=== PATIENT | female | born 1955 | race Caucasian/White ===

== ENCOUNTER 2016-07-22 04:19 | Emergency (ER) | payer BC ==
--- NOTE | 2016-07-22 06:24 | ED ORDER SUMMARY ---
..... Patient: MUKUL SMITH OrderSheet [facility] VisitID: [id number] [place] [address] 60y, F Registration Date/Time: 07/22/2016 ORDER SHEET Weight: 127.0 kg Allergies: Demerol GENERAL ORDERS: CBC w Diff Urgent (04:24 07/22/2016 Stefan Flowers) (Ack 4:27 SRedmond) (4:30 TBowen R.N.) CMP Urgent (04:07/22/2016 Stefan Flowers) (Ack 4:27 SRedmond) (4:30 TBowen R.N.) UA-Culture if indicated Urgent (04:07/22/2016 Stefan Flowers) (Ack 4:27 SRedmond) (4:30 TBowen R.N.) Lipase Urgent (04:07/22/2016 Stefan Flowers) (Ack 4:27 SRedmond) (4:30 TBowen R.N.) Pulse oximeter (04:24 07/22/2016 Stefan Flowers) (Ack 4:27 SRedmond) (4:27 SRedmond) CT Abd/Pel wo Cont Urgent (04:34 07/22/2016 Stefan Flowers) (Ack 4:38 SRedmond) (6:25 SRedmond) MEDICATION ORDERS: IV FLUIDS: IV NS : initial bolus 1000 mL (1000 mL/hr), then none - for X1 (NOW) (04:07/22/2016 Stefan Flowers) (4:35 TBowen R.N.) Zofran IV 4 mg (NOW) (04:24 07/22/2016 Stefan Flowers) (4:30 TBowen R.N.) Toradol IV 30 mg (NOW) (04:07/22/2016 Stefan Flowers) (4:50 TBowen R.N.) Dilaudid IV 1 mg (once now. may repeat in 15 minutes for pain > 5/10) (04:35 07/22/2016 Stefan Flowers) (4:50 TBowen R.N.) Dilaudid IV 1 mg (HIGH ALERT MEDICATION, NOW) (06:21 07/22/2016 Stefan Flowers) (6:41 Jamil Purcell) ORDER SHEET NOTES: [Electronically signed by Sharon Gonzáles R.N. (07:04 07/22/2016)] [Electronically signed by Alex Harrell Dr. (03:18 07/27/2016)] [Electronically locked/signed by Sharon Gonzáles R.N. (07:04 07/22/2016)]
--- NOTE | 2016-07-22 06:24 | ED NURSING NOTES ---
Clinical Report - Nurses [facility] [address] [place] [address] 07/22/2016 4:21 Patient: MUKUL SMITH TRIAGE Triage time 04:26. Acuity: LEVEL 3. Chief Complaint: PAINFUL URINATION and URGENCY. --04:28 TonyaB, R.N. 04:25 07/22/16. BP: 175/97. HR: 87. RR: 18. O2 saturation: 97%. Temp: 98.3 F. Pain level now: 10/24. --04:28 TonyaB, R.N. Weight: 127 kg. Height/Length: 66 inches. BMI: 45.2. --04:27 TonyaB, R.N. Medications Benadryl Allergy Oral. Calcium + D Oral. Ibuprofen Oral. Lovastatin Oral. Multi Complete Oral. Stelara Subcutaneous. --04:26 TonyaB, R.N. Allergies Demerol. --04:26 TonyaB, R.N. History Arrived by private vehicle. Historian: patient. Accompanied by family. This started just prior to arrival. Treatment PROJECT BUYER: (zofran). PAST MEDICAL HX: Immunizations: up-to-date. SOCIAL HX: Never smoker. No alcohol use or drug use. No infectious disease exposure. SELF HARM ASSESSMENT: A self harm assessment was performed. The patient answered "no" to the question "Have you recently felt down, depressed, or hopeless?", "Have you noticed less interest or pleasure in doing things?", "Do you have thoughts of harming or killing yourself?", "Are you here because you tried to hurt yourself?", "Have you ever tried to hurt yourself before today?", "Have you recently had thoughts about harming or killing others?" and "Do you have any dangerous items in your possession?". FALL RISK ASSESSMENT: Fall risk assessment completed. No fall risk identified. NUTRITIONAL RISK ASSESSMENT: The nutritional risk assessment revealed no deficiencies. FUNCTIONAL ASSESSMENT: Functional assessment: no impairments noted. LEARNING NEEDS ASSESSMENT: The learning needs assessment revealed no barriers. SKIN INTEGRITY ASSESSMENT: Skin integrity risk assessment completed. No skin integrity risk identified. --04:28 Binh Raya PROBLEMS: Urinary Calculi. Ureterolithiasis. Obesity. Arthritis. Psoriasis. --04:26 Sarah Raya. ADDITIONAL SURGERIES: Adenoidectomy. Knee Surgery. Thumb joint replacement . Tonsillectomy. Tubal Ligation. --04:26 Binh Raya Interventions ID band on patient. To treatment room. --04:28 Binh Raya PHYSICAL ASSESSMENT ( pt having nausea and vomiting since 023). GENERAL / NEURO / PSYCH: Alert. Oriented X 4. Appears in pain. HEENT: Mucous membranes are pink. RESPIRATORY: Respirations not labored. Breath sounds within normal limits. CVS: Normal heart rate and rhythm. Capillary refill less than 2 seconds. GI / : Pain with urination. She has had frequency of urination. Urgency of urination. No vaginal bleeding. No vaginal discharge. No genital lesions noted. SKIN: Skin is warm and dry. --04:29 Binh Raya NURSING PROGRESS NOTES 04:29 07/22/2016 Site #1 started via IV in the right antecubital space with an 20g angiocath, with aseptic technique and good blood return; one attempt. Blood drawn: rainbow set. Labeled in the presence of the patient and sent to the lab. --04:29 Binh Raya ( zofran 4mg IV given per verbal order by ). --04:29 Binh Raya Patient gowned. Patient identifiers checked. Call light placed in reach. Side rails up. Bed placed in lowest position. Brakes of bed on. --04:30 Binh Raya 04:30 07/22/2016 Zofran (Ondansetron HCl) IVP 4 mg given over 2 minute(s) via site #1. Allergies verified and confirmed 5 rights. IV patency established. IV site checked: no pain, redness, or swelling. IV flushed thoroughly pre- and post-medication administration. IVP given by RN. --04:30 Binh Raya 04:35 07/22/2016 Started bag #1 1000 mL IV Fluids IV NS (Saline); at 1000 mL/hr over 1 hour(s) via site #1 via dial-a-flow. Allergies verified and confirmed 5 rights. IV patency established. IV site checked: no pain, redness, or swelling. IV flushed thoroughly pre- and post-medication administration. --04:35 Binh Raya 04:50 07/22/2016 Toradol IVP 30 mg given over 2 minute(s) via site #1. Allergies verified and confirmed 5 rights. IV patency established. IV site checked: no pain, redness, or swelling. IV flushed thoroughly pre- and post-medication administration. IVP given by RN. --04:50 Binh Raya 04:50 07/22/2016 Dilaudid (HYDROmorphone HCl PF) IVP 1 mg given over 2 minute(s) via site #1. Allergies verified, confirmed 5 rights and sedative warning given to the patient. IV patency established. IV site checked: no pain, redness, or swelling. IV flushed thoroughly pre- and post-medication administration. IVP given by RN. --04:50 Binh Raya 06:30 07/22/2016 Dilaudid (HYDROmorphone HCl PF) IVP 1 mg given over 2 minute(s) via site #1. Allergies verified, confirmed 5 rights and sedative warning given to the patient. IV patency established. IV site checked: no pain, redness, or swelling. IV flushed thoroughly pre- and post-medication administration. IVP given by RN. --06:41 Yahir Whitman R.N. 07:04 07/22/2016 IV Fluids IV NS Discontinued: bag #1 completed upon discharge. Total amount infused: 1000 mL. IV patency established. IV site checked: no pain, redness, or swelling. IV flushed thoroughly. --07:04 Binh Raya DISPOSITION / DISCHARGE 07:00 07/22/2016 Site #1 removed upon discharge. Catheter intact. Bandaid applied. --07:00 Binh Raya Condition at departure: improved. No learning barriers present. Discharge instructions provided and reviewed with the patient. Reviewed medication(s) side effects, precautions, dosing and course information. Prescription(s) given to the patient. Reviewed referral to a urologist. Work note given. Follow up contact number. Patient verbalized understanding. Written instructions provided in [place]. No warning instructions, treatment instructions, diet instructions, activity restrictions or stop smoking instructions. The patient was discharged by the physician. She was discharged home and accompanied by used car make ready worker. She left the Emergency Department ambulatory and via private vehicle. Artificial Flower Maker driving. FALL RISK ASSESSMENT: Fall risk assessment completed. No fall risk identified. --07:02 Binh Raya 07:00 07/22/16. BP: 134/74. HR: 80. RR: 18. O2 saturation: 96%. Temp: deferred. Pain level now: 05/27. --07:02 Binh Raya Departure time: :. --07:04 Binh Raya 06:34 07/22/16. BP: 129/64. HR: 79. RR: 18. O2 saturation: 96%. Temp: deferred. Pain level now: 05/27. --07:04 Binh Raya Locked/Released at 07/22/2016 7:04 by Binh Raya
--- NOTE | 2016-07-22 06:24 | ED CLINICAL REPORT ---
Clinical Report - Physicians/Mid Levels [facility] [address] [place] [address] 07/22/2016 4:21 [id number] Time Seen: 9. Arrived- By private vehicle. Historian- patient. HISTORY OF PRESENT ILLNESS Chief Complaint: FLANK PAIN. This started today and is still present. It was abrupt in onset and has been intermittent but is not gone now. It is described as sharp and it is described as located in the right flank and radiating to the abdomen (RLQ). At its maximum, severity described as moderate. When seen in the E.D., severity described as moderate. No loss of appetite or diarrhea. Similar symptoms previously: Recent medical care: The patient was seen recently by a health care provider. REVIEW OF SYSTEMS No black stools, hematemesis, fever, chest pain or difficulty breathing. No skin rash. She has had difficulty with urination, and pain on urination. All systems otherwise negative, except as recorded above. PAST HISTORY See nurses notes. Medications: Benadryl Allergy Oral. Calcium + D Oral. Ibuprofen Oral. Lovastatin Oral. Multi Complete Oral. Stelara Subcutaneous. Allergies: Demerol. SOCIAL HISTORY Never smoker. No alcohol use or drug use. No recent travel. Is a local resident. FAMILY HISTORY Negative. ADDITIONAL NOTES The nursing notes have been reviewed. PHYSICAL EXAM Vital Signs: 07/22/2016 04:25 BP: 175/97. HR: 87. RR: 18. O2 saturation: 97%. Temp: 98.3 F. Pain level now: 7/10. Oxygen saturation normal. Appearance: Alert. Oriented X3. No acute distress. Eyes: Pupils equal, round and reactive to light. Eyes normal inspection. CVS: Normal heart rate and rhythm. Heart sounds normal. Pulses normal. Respiratory: No respiratory distress. Breath sounds normal. Chest nontender. Abdomen: Soft and nontender. Bowel sounds normal. No mass. No rebound tenderness or guarding. Back: Normal inspection. Mild CVA tenderness on the right. Skin: Skin warm and dry. Normal skin color. No rash. Normal skin turgor. Extremities: Extremities exhibit normal ROM. No lower extremity edema. LABS, X-RAYS, AND EKG Abdominal CT: PROCEDURE: CT ABDOMEN/PELVIS W/O CONTRAST INDICATION: RIGHT FLANK PAIN TECHNIQUE: Axial CT images were obtained through the abdomen and pelvis without IV contrast. Coronal and sagittal reformations were created. COMPARISON: 04/03/2016 FINDINGS: 7 mm calculus at the right ureteropelvic junction causing moderate right hydronephrosis. Punctate upper pole nonobstructing intrarenal calculus on the right, and two nonobstructing intrarenal calculi on the left, also punctate in size. 12 mm lesser sac heterogeneous calcification may be evidence of remote pancreatitis or calcified lymph node. Fat containing right periumbilical hernia with a neck measuring about 18 mm. Clear lung bases. Normal sized heart. No hiatal hernia. The unenhanced appearance of the liver, gallbladder, adrenal glands, kidneys, pancreas and spleen is normal. The abdominal aorta is normal in its course and caliber with trace atherosclerosis. No retroperitoneal adenopathy or masses. The stomach, upper bowel loops, and mesentery are normal. No free fluid or inflammation. The unenhanced appearance of the uterus, ovaries, urinary bladder, pelvic vessels, and pelvic bowel loops is normal. Normal appendix. No suspicious calcifications, free pelvic fluid or mass. Intact osseous structures. Degenerative facet disease in the lower lumbar spine. IMPRESSION: 1. 7 mm right ureteropelvic junction calculus causing moderate right hydronephrosis. 2. Punctate, nonobstructing bilateral intrarenal calculi. 3. Moderate size fat containing umbilical hernia, stable. Study type: abdomen and pelvis. The study was independently viewed by me and interpreted by the radiologist. The study was discussed with the radiologist (via phone and pacs). Laboratory Tests: UA-Culture if indicated: (JEANETTE: 07/22/2016 04:20) ( MsgRcvd 07/22/2016 05:08) Final results Test Result Flag Units (Reference) URINE COLOR YELLOW URINE APPEARANCE CLEAR URINE GLUCOSE NEGATIVE (NEGATIVE) URINE BILIRUBIN NEGATIVE (NEGATIVE) URINE KETONE NEGATIVE (NEGATIVE) URINE SPECIFIC GRAVITY 1.020 (1.010-1.030) URINE PH 6.0 (5.0-8.0) URINE PROTEIN NEGATIVE (NEGATIVE) URINE UROBILINOGEN 0.2 EU/dL (0.2-1.0) URINE NITRITE NEGATIVE (NEGATIVE) URINE BLOOD 3+ (NEGATIVE) URINE LEUK ESTERASE NEGATIVE (NEGATIVE) URINE RBC 5-10 rbc/hpf (0-1) URINE WBC 0-1 wbc/hpf (0-1) URINE EPITHELIAL CELLS 0-1 EPI/hpf (0-5) URINE BACTERIA NONE SEEN (NONE SEEN) URINE COMMENT CULT NOT INDICATED URINE CULTURES ARE SET-UP BASED ON THE FOLLOWING CRITERIA:POSITIVE NITRITEPOSITIVE LEUKOCYTE ESTERASEGREATER THAN 10 WHITE BLOOD CELLSMODERATE (2+) OR GREATER BACTERIA CBC w Diff: (JEANETTE: 07/22/2016 04:20) ( [facility] [place] Final results Test Result Flag Units (Reference) WHITE BLOOD COUNT 10.9 K/uL (4.5-11.5) RED BLOOD COUNT 5.20 M/uL (4.00-5.20) HEMOGLOBIN 15.3 gm/dL (12.0-16.0) HEMATOCRIT 46.2 H % (36.0-46.0) MEAN CELL VOLUME 89 fL (80-100) MEAN CORPUSCULAR HGB 29 pg (26-34) MEAN CORPUSCULAR HGB CONC 33 g/dL (31-37) RED CELL DISTRIBUTION WIDTH 14.2 % (11.6-14.8) PLATELET COUNT 263 K/uL (150-400) NEUTROPHIL % 50.9 % (50-75) LYMPH % 37.0 % (25-40) MONO % 8.4 % (3-14) EOSINOPHIL % 3.3 % (0-4) BASOPHIL % 0.4 % (0-2) CMP: (JEANETTE: 07/22/2016 04:20) ( [facility] [place]22[facility] 05[facility]09) Final results Test Result Flag Units (Reference) GLUCOSE 156 H mg/dL (70-110) BUN 25 H mg/dL (7-18) CREATININE 1.1 mg/dL (0.6-1.3) Estimated GFR 54.03 mL/min Estimated GFR- >60 mL/min Note: Persistent reduction over 3 months in eGFR<60 mL/min/1.73 m2 defines CKD. Patients with eGFR values>=60 mL/min/1.73 m2 may also have CKD if evidence ofpersistent proteinuria. Additional information may be foundat www.kidney.org. SODIUM 143 mmol/L (136-145) POTASSIUM 4.2 mmol/L (3.5-5.1) CHLORIDE 106 mmol/L (98-107) CARBON DIOXIDE 26 mmol/L (21-32) CALCIUM 9.0 mg/dL (8.5-10.1) TOTAL PROTEIN 7.7 g/dL (6.4-8.2) ALBUMIN 3.9 g/dL (3.3-5.0) BILIRUBIN, TOTAL 0.3 mg/dL (0.0-1.0) ALKALINE PHOSPHATASE 78 U/L (46-116) AST (SGOT) 13 L U/L (15-37) ALT (SGPT) 36 U/L (12-78) LIPASE 186 U/L (73-393) . PROGRESS AND PROCEDURES Course of Care: the patient is a pleasant 60 year old female presenting for a fashion right-sided flank pain. Patient reports having history of kidney stones. Patient will be evaluated with laboratory studies. We'll review the patient's medical records and past imaging for evaluation of other stones in the patient's CT scan which could be causing her symptoms. If the patient has stones that are significantly large and located on the right side, patient will be evaluated with CT scan for further evaluation of obstruction. Patient is agreeable to treatment plan. Medications and fluids have been ordered. The patient's prior CT scan from approximately 4 months ago has been reviewed. Patient with large stones on the right side. Patient will be evaluated with CT scan for further evaluation of the patient's right-sided flank pain. Patient is agreeable to the CT scan. Patient's workup shows patient to have the CT scan results noted above. Because of this, patient is at high risk for having the stone does not pass spontaneously. Refer to urology as been placed. Because of the patient's symptoms have been improved while here in the emergency department and the patient states that she feels well enough to return home, we'll have patient follow-up as an outpatient. I discussed with the patient her workup here in the emergency department including home care, follow-up, return precautions,and diagnosis. 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 Patient is requesting a note for work. Patient will be given several days off in regards to her symptoms here in the emergency department. Prescriptions for medications at home were provided. An additional pain medication dose was provided here in the emergency department prior to the patient's departure from the EDas her pain had started to return. After the pain medication as been given, patient reported significant improvement and continues to be comfortable with returning home. Do not fill patient needs to be admitted to the hospital require further emergency department workup/evaluation. Disposition: Discharged. Condition: good. CLINICAL IMPRESSION Right renal colic in the right ureter with hydronephrosis (acute). INSTRUCTIONS Do not work for three days. Warnings: GENERAL WARNINGS: Return or contact your physician immediately if your condition worsens or changes unexpectedly, if not improving as expected, or if other problems arise. SPECIFICALLY, return if you develop pain, fever, vomiting, the inability to keep fluids down, blood in vomitus, blood in diarrhea, fainting or lightheadedness. Your Current Medications: CONTINUE TAKING THE FOLLOWING MEDICATIONS: Benadryl Allergy Oral. Calcium + D Oral. Ibuprofen Oral. Lovastatin Oral. Multi Complete Oral. Stelara Subcutaneous. Prescription Medications: Motrin 600 mg tablets: take 1 tablet orally every 6 hours as needed for pain, stiffness or swelling. Dispense thirty (30). No refill. Substitution is permissible. Percocet 5 mg/325 mg: take 1-2 tablets orally every 6 hours as needed for pain. Dispense twenty (20). No refill. Substitution is permissible. Follow-up: Return to the emergency department as needed. Follow up with your doctor in three days. Reason for referral: recheck today's concerns. Summary of care provided to patient via paper. Screening today revealed the patient's blood pressure to be in the normal range. The patient should follow up with a primary care provider for blood pressure management. Understanding of the discharge instructions verbalized by patient. Follow-up with: Gonzales Rodrigues MD, Urology, , [address], [place], [id number] Follow up. Call for the next available appointment. Reason for referral: recheck today's concerns. Summary of care provided to patient via paper. (Electronically signed by Alex Harrell Dr. 07/27/2016 3:18)
--- NOTE | 2016-07-22 06:24 | ED NURSING NOTES ---
Clinical Report - Nurses [facility] [address] [place] [address] 07/22/2016 4:21 Patient: MUKUL SMITH TRIAGE Triage time 04:26. Acuity: LEVEL 3. Chief Complaint: PAINFUL URINATION and URGENCY. --04:28 TonyaB, R.N. 04:25 07/22/16. BP: 175/97. HR: 87. RR: 18. O2 saturation: 97%. Temp: 98.3 F. Pain level now: 10/24. --04:28 TonyaB, R.N. Weight: 127 kg. Height/Length: 66 inches. BMI: 45.2. --04:27 TonyaB, R.N. Medications Benadryl Allergy Oral. Calcium + D Oral. Ibuprofen Oral. Lovastatin Oral. Multi Complete Oral. Stelara Subcutaneous. --04:26 TonyaB, R.N. Allergies Demerol. --04:26 TonyaB, R.N. History Arrived by private vehicle. Historian: patient. Accompanied by family. This started just prior to arrival. Treatment FERN CUTTER: (zofran). PAST MEDICAL HX: Immunizations: up-to-date. SOCIAL HX: Never smoker. No alcohol use or drug use. No infectious disease exposure. SELF HARM ASSESSMENT: A self harm assessment was performed. The patient answered "no" to the question "Have you recently felt down, depressed, or hopeless?", "Have you noticed less interest or pleasure in doing things?", "Do you have thoughts of harming or killing yourself?", "Are you here because you tried to hurt yourself?", "Have you ever tried to hurt yourself before today?", "Have you recently had thoughts about harming or killing others?" and "Do you have any dangerous items in your possession?". FALL RISK ASSESSMENT: Fall risk assessment completed. No fall risk identified. NUTRITIONAL RISK ASSESSMENT: The nutritional risk assessment revealed no deficiencies. FUNCTIONAL ASSESSMENT: Functional assessment: no impairments noted. LEARNING NEEDS ASSESSMENT: The learning needs assessment revealed no barriers. SKIN INTEGRITY ASSESSMENT: Skin integrity risk assessment completed. No skin integrity risk identified. --04:28 Binh Raya PROBLEMS: Urinary Calculi. Ureterolithiasis. Obesity. Arthritis. Psoriasis. --04:26 Sraah Raya. ADDITIONAL SURGERIES: Adenoidectomy. Knee Surgery. Thumb joint replacement . Tonsillectomy. Tubal Ligation. --04:26 Binh Raya Interventions ID band on patient. To treatment room. --04:28 Binh Raya PHYSICAL ASSESSMENT ( pt having nausea and vomiting since 023). GENERAL / NEURO / PSYCH: Alert. Oriented X 4. Appears in pain. HEENT: Mucous membranes are pink. RESPIRATORY: Respirations not labored. Breath sounds within normal limits. CVS: Normal heart rate and rhythm. Capillary refill less than 2 seconds. GI / : Pain with urination. She has had frequency of urination. Urgency of urination. No vaginal bleeding. No vaginal discharge. No genital lesions noted. SKIN: Skin is warm and dry. --04:29 Binh Raya NURSING PROGRESS NOTES 04:29 07/22/2016 Site #1 started via IV in the right antecubital space with an 20g angiocath, with aseptic technique and good blood return; one attempt. Blood drawn: rainbow set. Labeled in the presence of the patient and sent to the lab. --04:29 Binh Raya ( zofran 4mg IV given per verbal order by ). --04:29 Binh Raya Patient gowned. Patient identifiers checked. Call light placed in reach. Side rails up. Bed placed in lowest position. Brakes of bed on. --04:30 Binh Raya 04:30 07/22/2016 Zofran (Ondansetron HCl) IVP 4 mg given over 2 minute(s) via site #1. Allergies verified and confirmed 5 rights. IV patency established. IV site checked: no pain, redness, or swelling. IV flushed thoroughly pre- and post-medication administration. IVP given by RN. --04:30 Binh Raya 04:35 07/22/2016 Started bag #1 1000 mL IV Fluids IV NS (Saline); at 1000 mL/hr over 1 hour(s) via site #1 via dial-a-flow. Allergies verified and confirmed 5 rights. IV patency established. IV site checked: no pain, redness, or swelling. IV flushed thoroughly pre- and post-medication administration. --04:35 Binh Raya 04:50 07/22/2016 Toradol IVP 30 mg given over 2 minute(s) via site #1. Allergies verified and confirmed 5 rights. IV patency established. IV site checked: no pain, redness, or swelling. IV flushed thoroughly pre- and post-medication administration. IVP given by RN. --04:50 Binh Raya 04:50 07/22/2016 Dilaudid (HYDROmorphone HCl PF) IVP 1 mg given over 2 minute(s) via site #1. Allergies verified, confirmed 5 rights and sedative warning given to the patient. IV patency established. IV site checked: no pain, redness, or swelling. IV flushed thoroughly pre- and post-medication administration. IVP given by RN. --04:50 Binh Raya 06:30 07/22/2016 Dilaudid (HYDROmorphone HCl PF) IVP 1 mg given over 2 minute(s) via site #1. Allergies verified, confirmed 5 rights and sedative warning given to the patient. IV patency established. IV site checked: no pain, redness, or swelling. IV flushed thoroughly pre- and post-medication administration. IVP given by RN. --06:41 Yahir Whitman R.N. 07:04 07/22/2016 IV Fluids IV NS Discontinued: bag #1 completed upon discharge. Total amount infused: 1000 mL. IV patency established. IV site checked: no pain, redness, or swelling. IV flushed thoroughly. --07:04 Binh Raya DISPOSITION / DISCHARGE 07:00 07/22/2016 Site #1 removed upon discharge. Catheter intact. Bandaid applied. --07:00 Binh Raya Condition at departure: improved. No learning barriers present. Discharge instructions provided and reviewed with the patient. Reviewed medication(s) side effects, precautions, dosing and course information. Prescription(s) given to the patient. Reviewed referral to a urologist. Work note given. Follow up contact number. Patient verbalized understanding. Written instructions provided in [place]. No warning instructions, treatment instructions, diet instructions, activity restrictions or stop smoking instructions. The patient was discharged by the physician. She was discharged home and accompanied by budget manager. She left the Emergency Department ambulatory and via private vehicle. Medical Chemist driving. FALL RISK ASSESSMENT: Fall risk assessment completed. No fall risk identified. --07:02 Binh Raya 07:00 07/22/16. BP: 134/74. HR: 80. RR: 18. O2 saturation: 96%. Temp: deferred. Pain level now: 05/27. --07:02 Binh Raya Departure time: :. --07:04 Binh Raya 06:34 07/22/16. BP: 129/64. HR: 79. RR: 18. O2 saturation: 96%. Temp: deferred. Pain level now: 05/27. --07:04 Binh Raya Locked/Released at 07/22/2016 7:04 by Binh Raya
--- NOTE | 2016-07-22 06:24 | ED ORDER SUMMARY ---
..... Patient: MUKUL SMITH OrderSheet [facility] VisitID: [id number] [place] [address] 60y, F Registration Date/Time: 07/22/2016 ORDER SHEET Weight: 127.0 kg Allergies: Demerol GENERAL ORDERS: CBC w Diff Urgent (04:24 07/22/2016 Stefan Flowers) (Ack 4:27 SRedmond) (4:30 TBowen R.N.) CMP Urgent (04:07/22/2016 Stefan Flowers) (Ack 4:27 SRedmond) (4:30 TBowen R.N.) UA-Culture if indicated Urgent (04:07/22/2016 Stefan Flowers) (Ack 4:27 SRedmond) (4:30 TBowen R.N.) Lipase Urgent (04:07/22/2016 Stefan Flowers) (Ack 4:27 SRedmond) (4:30 TBowen R.N.) Pulse oximeter (04:24 07/22/2016 Stefan Flowers) (Ack 4:27 SRedmond) (4:27 SRedmond) CT Abd/Pel wo Cont Urgent (04:34 07/22/2016 Stefan Flowers) (Ack 4:38 SRedmond) (6:25 SRedmond) MEDICATION ORDERS: IV FLUIDS: IV NS : initial bolus 1000 mL (1000 mL/hr), then none - for X1 (NOW) (04:07/22/2016 Stefan Flowers) (4:35 TBowen R.N.) Zofran IV 4 mg (NOW) (04:24 07/22/2016 Stefan Flowers) (4:30 TBowen R.N.) Toradol IV 30 mg (NOW) (04:07/22/2016 Stefan Flowers) (4:50 TBowen R.N.) Dilaudid IV 1 mg (once now. may repeat in 15 minutes for pain > 5/10) (04:35 07/22/2016 Stefan Flowers) (4:50 TBowen R.N.) Dilaudid IV 1 mg (HIGH ALERT MEDICATION, NOW) (06:21 07/22/2016 Stefan Flowers) (6:41 Jamil Purcell) ORDER SHEET NOTES: [Electronically signed by Sharon Gonzáles R.N. (07:04 07/22/2016)] [Electronically signed by Alex Harrell Dr. (03:18 07/27/2016)] [Electronically locked/signed by Sharon Gonzáles R.N. (07:04 07/22/2016)]
--- NOTE | 2016-07-22 08:41 | DIAGNOSTIC IMAGING REPORT ---
PROCEDURE: CT ABDOMEN/PELVIS W/O CONTRAST INDICATION: RIGHT FLANK PAIN TECHNIQUE: Axial CT images were obtained through the abdomen and pelvis without IV contrast. Coronal and sagittal reformations were created. COMPARISON: 04/03/2016 FINDINGS: 7 mm calculus at the right ureteropelvic junction causing moderate right hydronephrosis. Punctate upper pole nonobstructing intrarenal calculus on the right, and two nonobstructing intrarenal calculi on the left, also punctate in size. 12 mm lesser sac heterogeneous calcification may be evidence of remote pancreatitis or calcified lymph node. Fat containing right periumbilical hernia with a neck measuring about 18 mm. Clear lung bases. Normal sized heart. No hiatal hernia. The unenhanced appearance of the liver, gallbladder, adrenal glands, kidneys, pancreas and spleen is normal. The abdominal aorta is normal in its course and caliber with trace atherosclerosis. No retroperitoneal adenopathy or masses. The stomach, upper bowel loops, and mesentery are normal. No free fluid or inflammation. The unenhanced appearance of the uterus, ovaries, urinary bladder, pelvic vessels, and pelvic bowel loops is normal. Normal appendix. No suspicious calcifications, free pelvic fluid or mass. Intact osseous structures. Degenerative facet disease in the lower lumbar spine. IMPRESSION: 1. 7 mm right ureteropelvic junction calculus causing moderate right hydronephrosis. 2. Punctate, nonobstructing bilateral intrarenal calculi. 3. Moderate size fat containing umbilical hernia, stable. 4. Preliminary report by Dr. James Monaco of [facility] radiology All CT scans at this facility use dose modulation, iterative reconstruction, and/or weight-based dosing when appropriate to reduce radiation dose to as low as reasonably achievable.
--- NOTE | 2016-07-27 03:19 | ED MED RECONCILIATION SUMMARY ---
Patient: MUKUL SMITH Medication Reconciliation Report [facility] VisitID: [id number] [place] [address] 60y, F Registration Date/Time: 07/22/2016 Weight: 127.0 kg Height/Length: 66 in. BMI: 45.2 ALLERGIES: Demerol The patient's Home Medications are listed below: CONTINUE TAKING THE FOLLOWING MEDICATIONS: Benadryl Allergy Oral Calcium + D Oral Ibuprofen Oral Lovastatin Oral Multi Complete Oral Stelara Subcutaneous The source(s) of the original Home Medication information: Not obtained. The following Medications were given to the patient in the Emergency Department: Zofran [IVP] IVP 4 mg, administered: 07/22/2016 4:30:00 AM IV NS IV Fluids bolus 0, then 1000 mL/hr, administered: 07/22/2016 4:35:00 AM Toradol [IVP] IVP 30 mg, administered: 07/22/2016 4:50:00 AM Dilaudid [IVP] IVP 1 mg, administered: 07/22/2016 4:50:00 AM Dilaudid [IVP] IVP 1 mg, administered: 07/22/2016 6:30:00 AM The following Medications were prescribed to the patient: Motrin 600 mg tablets: take 1 tablet orally every 6 hours as needed for pain, stiffness or swelling. Dispense thirty (30). No refill. Substitution is permissible. -- Alex Harrell Dr. Percocet 5 mg/325 mg: take 1-2 tablets orally every 6 hours as needed for pain. Dispense twenty (20). No refill. Substitution is permissible. -- Alex Harrell Dr.
--- NOTE | 2016-07-27 03:19 | ED DISCHARGE INSTRUCTIONS ---
Patient: MUKUL SMITH General Instructions [facility] VisitID: [id number] [place] [address] 60y, F Registration Date/Time: 07/22/2016 Right renal colic in the right ureter with hydronephrosis (acute). INSTRUCTIONS Do not work for three days. Warnings: GENERAL WARNINGS: Return or contact your physician immediately if your condition worsens or changes unexpectedly, if not improving as expected, or if other problems arise. SPECIFICALLY, return if you develop pain, fever, vomiting, the inability to keep fluids down, blood in vomitus, blood in diarrhea, fainting or lightheadedness. Your Current Medications: CONTINUE TAKING THE FOLLOWING MEDICATIONS: Benadryl Allergy Oral. Calcium + D Oral. Ibuprofen Oral. Lovastatin Oral. Multi Complete Oral. Stelara Subcutaneous. Prescription Medications: Motrin 600 mg tablets: take 1 tablet orally every 6 hours as needed for pain, stiffness or swelling. Dispense thirty (30). No refill. Substitution is permissible. Percocet 5 mg/325 mg: take 1-2 tablets orally every 6 hours as needed for pain. Dispense twenty (20). No refill. Substitution is permissible. Follow-up: Return to the emergency department as needed. Follow up with your doctor in three days. Reason for referral: recheck today's concerns. Summary of care provided to patient via paper. Screening today revealed the patient's blood pressure to be in the normal range. The patient should follow up with a primary care provider for blood pressure management. Understanding of the discharge instructions verbalized by patient. Follow-up with: Gonzales Rodrigues MD, Urology, , [address] [facility] [place], [id number] Follow up. Call for the next available appointment. Reason for referral: recheck today's concerns. Summary of care provided to patient via paper. ADDITIONAL INFORMATION Kidney Stone (W/ Colic) The sharp cramping pain and nausea/vomiting that you have is due to a small stone which has formed in the kidney and is now passing down a narrow tube (ureter) on its way to your bladder. Once it reaches your bladder, the pain will stop. The stone may pass in your urine stream in one piece. [The size may be 1/16" to 1/4" (1-6mm)]. Or, the stone may also break up into pili fragments which you may not even notice. Once you have had a kidney stone, you are at risk for developing another one in the future. Home Care: Drink plenty of fluids (at least 8 to 10 glasses of water a day). Most stones will pass on their own, but may take from a few hours to a few days. Sometimes the stone is too large to pass by itself and special methods will have to be used to remove the stone. Each time you urinate, do so in a jar. Pour the urine from the jar through the strainer and into the toilet. Continue doing this until 24 hours after your pain stops. By then, if there was a kidney stone, it should pass from your bladder. Some stones dissolve into sand-like particles and pass right through the strainer. In that case, you wont ever see a stone. Save any stone that you find in the strainer and bring it to your doctor for analysis. It may be possible to prevent certain types of stones from forming. Therefore, it is important to know what kind of stone you have. Try to stay as active as possible since this will help the stone pass. Do not stay in bed unless your pain prevents you from getting up. You may notice a red, pink or brown color to your urine. This is normal while passing a kidney stone. Follow Up with your doctor or return to this facility if the pain lasts more than 48 hours. Get Prompt Medical Attention if any of the following occur: Pain that is not controlled by the medicine given Repeated vomiting or unable to keep down fluids Weakness, dizziness or fainting Fever of 100.4F (38C) or higher, or as directed by your healthcare provider Passage of solid red or brown urine (can't see through it) or urine with lots of blood clots Unable to pass urine for 8 hours and increasing bladder pressure Blood In The Urine Blood in the urine ("hematuria") has many possible causes. If it occurs after an injury (such as a car accident or fall), it is most often a sign of bruising to the kidney or bladder. Common medical causes of blood in the urine include urinary tract infection, kidney stone, inflammation, tumors, or certain other diseases of the kidney or bladder. Menstruation can cause blood to appear in the urine sample, although it is not coming from the urinary tract. If only a trace amount of blood is present, it will show up on the urine test, even though the urine may be yellow and not pink or red. This may occur with any of the above conditions, as well as heavy exercise or high fever. In this case, your doctor may want to repeat the urine test on another day. This will show if the blood is still present. If so, then other tests can be done to find out the cause. Home Care: If your urine does not appear bloody (pink, brown or red) then you do not need to restrict your activity in any way. If you can see blood in your urine, rest and avoid heavy exertion until your next exam. Do not use aspirin or anti-inflammatory medicine like ibuprofen (Motrin, Advil) or naproxen (Naprosyn, Aleve). These thin the blood and may increase bleeding. Follow Up with your doctor or as advised by our staff. If you were injured and had blood in your urine, you should have a repeat urine test in 1-2 days. Contact your doctor or return to this facility for this test. [NOTE: A radiologist will review any X-rays that were taken. We will notify you of any new findings that may affect your care.] Get Prompt Medical Attention if any of the following occur: Bright red blood or blood clots in the urine (if a new symptom) Weakness, dizziness or fainting New groin, abdominal or back pain Fever of 100.4F (38C) or higher, or as directed by your healthcare provider Repeated vomiting Bleeding from nose, gums or easy bruising Ibuprofen Oral tablet What is this medicine? IBUPROFEN (eye BYOO proe fen) is a non-steroidal anti-inflammatory drug (NSAID). It is used for dental pain, fever, headaches or migraines, osteoarthritis, rheumatoid arthritis, or painful monthly periods. It can also relieve minor aches and pains caused by a cold, flu, or sore throat. How should I use this medicine? Take this medicine by mouth with a glass of water. Follow the directions on the prescription label. Take this medicine with food if your stomach gets upset. Try to not lie down for at least 10 minutes after you take the medicine. Take your medicine at regular intervals. Do not take your medicine more often than directed. A special MedGuide will be given to you by the pharmacist with each prescription and refill. Be sure to read this information carefully each time. Talk to your computer technology teacher regarding the use of this medicine in children. Special care may be needed. What side effects may I notice from receiving this medicine? Side effects that you should report to your doctor or health critical care registered nurse as soon as possible: allergic reactions like skin rash, itching or hives, swelling of the face, lips, or tongue black or bloody stools, blood in the urine or in vomit breathing problems changes in vision chest pain general ill feeling or flu-like symptoms nausea or vomiting redness, blistering, peeling or loosening of the skin, including inside the mouth slurred speech or weakness on one side of the body stomach pain unexplained weight gain or swelling unusually weak or tired yellowing of eyes or skin Side effects that usually do not require medical attention (report to your doctor or health critical care registered nurse if they continue or are bothersome): constipation or diarrhea dizziness gas or heartburn stomach upset What may interact with this medicine? Do not take this medicine with any of the following medications: cidofovir ketorolac methotrexate pemetrexed This medicine may also interact with the following medications: alcohol aspirin diuretics lithium other drugs for inflammation like prednisone warfarin What if I miss a dose? If you miss a dose, take it as soon as you can. If it is almost time for your next dose, take only that dose. Do not take double or extra doses. Where should I keep my medicine? Keep out of the reach of children. Store at room temperature between 15 and 30 degrees C (59 and 86 degrees F). Keep container tightly closed. Throw away any unused medicine after the expiration date. What should I tell my health care provider before I take this medicine? They need to know if you have any of these conditions: asthma cigarette smoker drink more than 3 alcohol containing drinks a day heart disease or circulation problems such as heart failure or leg edema (fluid retention) high blood pressure kidney disease liver disease stomach bleeding or ulcers an unusual or allergic reaction to ibuprofen, aspirin, other NSAIDS, other medicines, foods, dyes, or preservatives or trying to get breast-feeding What should I watch for while using this medicine? Tell your doctor or healthcare professional if your symptoms do not start to get better or if they get worse. This medicine does not prevent heart attack or stroke. In fact, this medicine may increase the chance of a heart attack or stroke. The chance may increase with longer use of this medicine and in people who have heart disease. If you take aspirin to prevent heart attack or stroke, talk with your doctor or health critical care registered nurse. Do not take other medicines that contain aspirin, ibuprofen, or naproxen with this medicine. Side effects such as stomach upset, nausea, or ulcers may be more likely to occur. Many medicines available without a prescription should not be taken with this medicine. This medicine can cause ulcers and bleeding in the stomach and intestines at any time during treatment. Ulcers and bleeding can happen without warning symptoms and can cause . To reduce your risk, do not smoke cigarettes or drink alcohol while you are taking this medicine. You may get drowsy or dizzy. Do not drive, use machinery, or do anything that needs mental alertness until you know how this medicine affects you. Do not stand or sit up quickly, especially if you are an older patient. This reduces the risk of dizzy or fainting spells. This medicine can cause you to bleed more easily. Try to avoid damage to your teeth and gums when you brush or floss your teeth. Oxycodone Hydrochloride, Acetaminophen Oral tablet What is this medicine? ACETAMINOPHEN; OXYCODONE (a set a EMMANUEL ольга fen; ox i KOE done) is a pain reliever. It is used to treat mild to moderate pain. How should I use this medicine? Take this medicine by mouth with a full glass of water. Follow the directions on the prescription label. Take your medicine at regular intervals. Do not take your medicine more often than directed. Talk to your computer technology teacher regarding the use of this medicine in children. Special care may be needed. Patients over 65 years old may have a stronger reaction and need a smaller dose. What side effects may I notice from receiving this medicine? Side effects that you should report to your doctor or health critical care registered nurse as soon as possible: allergic reactions like skin rash, itching or hives, swelling of the face, lips, or tongue breathing difficulties, wheezing confusion light headedness or fainting spells severe stomach pain yellowing of the skin or the whites of the eyes Side effects that usually do not require medical attention (report to your doctor or health critical care registered nurse if they continue or are bothersome): dizziness drowsiness nausea vomiting What may interact with this medicine? alcohol antihistamines barbiturates like amobarbital, butalbital, butabarbital, methohexital, pentobarbital, phenobarbital, thiopental, and secobarbital benztropine drugs for bladder problems like solifenacin, trospium, oxybutynin, tolterodine, hyoscyamine, and methscopolamine drugs for breathing problems like ipratropium and tiotropium drugs for certain stomach or intestine problems like propantheline, homatropine methylbromide, glycopyrrolate, atropine, belladonna, and dicyclomine general anesthetics like etomidate, ketamine, nitrous oxide, propofol, desflurane, enflurane, halothane, isoflurane, and sevoflurane medicines for depression, anxiety, or psychotic disturbances medicines for sleep muscle relaxants naltrexone narcotic medicines (opiates) for pain phenothiazines like perphenazine, thioridazine, chlorpromazine, mesoridazine, fluphenazine, prochlorperazine, promazine, and trifluoperazine scopolamine tramadol trihexyphenidyl What if I miss a dose? If you miss a dose, take it as soon as you can. If it is almost time for your next dose, take only that dose. Do not take double or extra doses. Where should I keep my medicine? Keep out of the reach of children. This medicine can be abused. Keep your medicine in a safe place to protect it from theft. Do not share this medicine with anyone. Selling or giving away this medicine is dangerous and against the law. Store at room temperature between 20 and 25 degrees C (68 and 77 degrees F). Keep container tightly closed. Protect from light. This medicine may cause accidental overdose and if it is taken by other adults, children, or pets. Flush any unused medicine down the toilet to reduce the chance of harm. Do not use the medicine after the expiration date. What should I tell my health care provider before I take this medicine? They need to know if you have any of these conditions: brain tumor Crohn's disease, inflammatory bowel disease, or ulcerative colitis drink more than 3 alcohol containing drinks per day drug abuse or addiction head injury heart or circulation problems kidney disease or problems going to the bathroom liver disease lung disease, asthma, or breathing problems an unusual or allergic reaction to acetaminophen, oxycodone, other opioid analgesics, other medicines, foods, dyes, or preservatives or trying to get breast-feeding What should I watch for while using this medicine? Tell your doctor or health critical care registered nurse if your pain does not go away, if it gets worse, or if you have new or a different type of pain. You may develop tolerance to the medicine. Tolerance means that you will need a higher dose of the medication for pain relief. Tolerance is normal and is expected if you take this medicine for a long time. Do not suddenly stop taking your medicine because you may develop a severe reaction. Your body becomes used to the medicine. This does NOT mean you are addicted. Addiction is a behavior related to getting and using a drug for a non-medical reason. If you have pain, you have a medical reason to take pain medicine. Your doctor will tell you how much medicine to take. If your doctor wants you to stop the medicine, the dose will be slowly lowered over time to avoid any side effects. You may get drowsy or dizzy. Do not drive, use machinery, or do anything that needs mental alertness until you know how this medicine affects you. Do not stand or sit up quickly, especially if you are an older patient. This reduces the risk of dizzy or fainting spells. Alcohol may interfere with the effect of this medicine. Avoid alcoholic drinks. There are different types of narcotic medicines (opiates) for pain. If you take more than one type at the same time, you may have more side effects. Give your health care provider a list of all medicines you use. Your doctor will tell you how much medicine to take. Do not take more medicine than directed. Call emergency for help if you have problems breathing. The medicine will cause constipation. Try to have a bowel movement at least every 2 to 3 days. If you do not have a bowel movement for 3 days, call your doctor or health critical care registered nurse. Do not take Tylenol (acetaminophen) or medicines that have acetaminophen with this medicine. Too much acetaminophen can be very dangerous. Many nonprescription medicines contain acetaminophen. Always read the labels carefully to avoid taking more acetaminophen. You have been given the following additional information: Kidney Stone W/ Colic Hematuria Ibuprofen Oral tablet Oxycodone Hydrochloride, Acetaminophen Oral tablet Do not work for three days. (Electronically signed by Alex Harrell Dr. 07/27/2016 3:18)
--- NOTE | 2016-07-27 03:19 | ED MAR SUMMARY ---
..... Medication Administration Record [facility] [address] [place] [address] Patient: MUKUL SMITH Visit ID: [id number] 60y, F Weight: 127.0 kg Height/Length: 66 in BMI: 45.2 ALLERGIES: Demerol Given 04:30 07/22/2016 Binh Raya Medication Administered: ZOFRAN [IVP] (ONDANSETRON HCL), Dose: 4 mg IVP over 2 minute(s), Site: #1 right AC. Medication Ordered: Zofran IV 4 mg (NOW). Start 04:35 07/22/2016 Binh Raya, Stop 07:04 07/22/2016 Sarah Raya. Medication Administered: IV NS (SALINE), Dose: IV Fluids over 1 hour(s), Rate: 1000 mL/hr, Dispensed: 1000 mL bag, Site: #1 right AC. Medication Ordered: IV NS : initial bolus 1000 mL (1000 mL/hr), then none - for X1 (NOW). Given 04:50 07/22/2016 Binh Raya Medication Administered: TORADOL [IVP], Dose: 30 mg IVP over 2 minute(s), Site: #1 right AC. Medication Ordered: Toradol IV 30 mg (NOW). Given 04:50 07/22/2016 Binh Raya Medication Administered: DILAUDID [IVP] (HYDROMORPHONE HCL PF), Dose: 1 mg IVP over 2 minute(s), Site: #1 right AC. Medication Ordered: Dilaudid IV 1 mg (once now. may repeat in 15 minutes for pain > 5/10). Given 06:30 07/22/2016 Yahir Whitman R.N. Medication Administered: DILAUDID [IVP] (HYDROMORPHONE HCL PF), Dose: 1 mg IVP over 2 minute(s), Site: #1 right AC. Medication Ordered: Dilaudid IV 1 mg (HIGH ALERT MEDICATION, NOW).
--- NOTE | 2016-07-27 03:19 | ED MAR SUMMARY ---
..... Medication Administration Record [facility] [address] [place] [address] Patient: MUKUL SMITH Visit ID: [id number] 60y, F Weight: 127.0 kg Height/Length: 66 in BMI: 45.2 ALLERGIES: Demerol Given 04:30 07/22/2016 Binh Raya Medication Administered: ZOFRAN [IVP] (ONDANSETRON HCL), Dose: 4 mg IVP over 2 minute(s), Site: #1 right AC. Medication Ordered: Zofran IV 4 mg (NOW). Start 04:35 07/22/2016 Binh Raya, Stop 07:04 07/22/2016 Sarah Raya. Medication Administered: IV NS (SALINE), Dose: IV Fluids over 1 hour(s), Rate: 1000 mL/hr, Dispensed: 1000 mL bag, Site: #1 right AC. Medication Ordered: IV NS : initial bolus 1000 mL (1000 mL/hr), then none - for X1 (NOW). Given 04:50 07/22/2016 Binh Raya Medication Administered: TORADOL [IVP], Dose: 30 mg IVP over 2 minute(s), Site: #1 right AC. Medication Ordered: Toradol IV 30 mg (NOW). Given 04:50 07/22/2016 Binh Raya Medication Administered: DILAUDID [IVP] (HYDROMORPHONE HCL PF), Dose: 1 mg IVP over 2 minute(s), Site: #1 right AC. Medication Ordered: Dilaudid IV 1 mg (once now. may repeat in 15 minutes for pain > 5/10). Given 06:30 07/22/2016 Yahir Whitman R.N. Medication Administered: DILAUDID [IVP] (HYDROMORPHONE HCL PF), Dose: 1 mg IVP over 2 minute(s), Site: #1 right AC. Medication Ordered: Dilaudid IV 1 mg (HIGH ALERT MEDICATION, NOW).
--- NOTE | 2016-07-27 03:19 | ED MED RECONCILIATION SUMMARY ---
Patient: MUKUL SMITH Medication Reconciliation Report [facility] VisitID: [id number] [place] [address] 60y, F Registration Date/Time: 07/22/2016 Weight: 127.0 kg Height/Length: 66 in. BMI: 45.2 ALLERGIES: Demerol The patient's Home Medications are listed below: CONTINUE TAKING THE FOLLOWING MEDICATIONS: Benadryl Allergy Oral Calcium + D Oral Ibuprofen Oral Lovastatin Oral Multi Complete Oral Stelara Subcutaneous The source(s) of the original Home Medication information: Not obtained. The following Medications were given to the patient in the Emergency Department: Zofran [IVP] IVP 4 mg, administered: 07/22/2016 4:30:00 AM IV NS IV Fluids bolus 0, then 1000 mL/hr, administered: 07/22/2016 4:35:00 AM Toradol [IVP] IVP 30 mg, administered: 07/22/2016 4:50:00 AM Dilaudid [IVP] IVP 1 mg, administered: 07/22/2016 4:50:00 AM Dilaudid [IVP] IVP 1 mg, administered: 07/22/2016 6:30:00 AM The following Medications were prescribed to the patient: Motrin 600 mg tablets: take 1 tablet orally every 6 hours as needed for pain, stiffness or swelling. Dispense thirty (30). No refill. Substitution is permissible. -- Alex Harrell Dr. Percocet 5 mg/325 mg: take 1-2 tablets orally every 6 hours as needed for pain. Dispense twenty (20). No refill. Substitution is permissible. -- Alex Harrell Dr.
== END 2016-07-22 06:50 | disposition home or self-care (01) ==
LOC: ED SRH 04:19
DX: N13.2 Hydronephrosis with renal and ureteral calculous obstruction (principal); Z87.442 Personal history of urinary calculi; Z79.899 Other long term (current) drug therapy; Z88.5 Allergy status to narcotic agent
CPT/HCPCS: 90004; 90100; 92235; 95059